=== PATIENT | female | born 1960 | race Hispanic/Latino ===

== ENCOUNTER 2017-11-12 23:37 | Observation (INO) | payer BC, OTHER ==
[2017-11-13] MEDS ORDERED: Sodium Chloride 0.9% 1,000 ML IV STA (00:42)
[2017-11-13 01:53] LABS: BASO # 0.1 K/uL (0.0-0.2); BASO % 0.4 % (0.0-2.0); EOS # 0.4 K/uL (0.0-0.7); EOS % 2.8 % (0.0-4.0); HEMOGLOBIN 12.1 g/dL (12.0-16.0); LYMPH # 2.9 K/uL (1.0-4.3); LYMPH % 20.4 % (20.0-40.0); MEAN CELL VOLUME 85.6 fl (81.0-99.0); MEAN CORPUSCULAR HEMOGLOBIN 27.8 pg (27.0-31.0); MEAN CORPUSCULAR HGB CONC 32.4 g/dL (33.0-37.0); MEAN PLATELET VOLUME 7.7 fl (7.2-11.7); MONO # 1.1 K/uL (0.0-0.8); MONO % 7.4 % (0.0-10.0); NEUT # 9.9 K/uL (1.8-7.0); NRBC % 0.1 % (0.0-0.0); RBC 4.35 Mil/uL (3.80-5.20); WHITE BLOOD COUNT 14.3 K/uL (4.8-10.8)
[2017-11-13 02:11] LABS: CALCIUM 9.7 mg/dL (8.4-10.2); GFR AFRICAN-AMERICAN > 60; GFR NON-AFRICAN AMERICAN > 60; LIPASE 46 U/L (23-300)
[2017-11-13] MEDS ORDERED: Iohexol 300 100 ML IJ ONE (02:16)
[2017-11-13] MEDS ORDERED: Sodium Chloride 0.9% 100 ML ONE (02:17)
--- NOTE | 2017-11-13 02:18 | ED PDOC ---
HPI: Abdomen Time Seen by Provider: 11/13/17 00:21 Chief Complaint (Nursing): Abdominal Pain Chief Complaint (Provider): Abdominal Pain History Per: Patient History/Exam Limitations: no limitations Onset/Duration Of Symptoms: Days (x4) Outside of [place] travel?: No Current Symptoms Are (Timing): Still Present Location Of Pain/Discomfort: RLQ, LLQ Associated Symptoms: Nausea, Diarrhea. denies: Vomiting Additional Complaint(s): 56 year old female presents to ED with complaints of abdominal pain and diarrhea x4 days and has a past medical history of diabetes mellitus (type II). Patient localizes pain to the lower abdomen and notes that diarrhea has improved over time but is still frequent. (+) decreased PO intake and nausea. (- ) vomiting. PCP: Kulwinder Sanford Past Medical History Reviewed: Historical Data, Nursing Documentation, Vital Signs Vital Signs: Last Vital Signs Temp 98.2 F 11/14/17 16:02 Pulse 94 H 11/14/17 16:02 Resp 18 11/14/17 16:02 BP 111/72 11/14/17 16:02 Pulse Ox 93 L 11/14/17 16:02 - Medical History PMH: COPD (chronic bronchitis), Diabetes Denies: No Chronic Diseases - Surgical History Surgical History: Appendectomy, Cholecystectomy, Tonsillectomy - Family History Family History: States: Unknown Family Hx - Living Arrangements Living Arrangements: With Family - Social History Current smoker - smoking cessation education provided: No Ex-Smoker (has not smoked in the last 12 months): No Alcohol: None Drugs: Denies - Home Medications Home Medications: Ambulatory Orders Medication Instructions Recorded Alprazolam [Xanax] 0.5 mg PO BID PRN 11/13/17 Enalapril Maleate [Vasotec] 10 mg PO HS 11/13/17 Folic Acid [FA-8] 800 mcg PO HS 11/13/17 Insulin Aspart, Recombinant 14 unit SQ DAILY 11/13/17 [Novolog] Insulin Aspart, Recombinant 18 unit SQ DIN 11/13/17 [Novolog] Magnesium Oxide [Magnesium] 250 mg PO HS 11/13/17 Metoprolol Tartrate [Lopressor] 50 mg PO BID 11/13/17 Simvastatin [Zocor] 20 mg PO HS 11/13/17 Acetaminophen [Tylenol 325mg tab] 650 mg PO Q6 PRN tab 11/14/17 Ciprofloxacin HCl [Cipro] 500 mg PO BID #20 tablet 11/14/17 Metronidazole [Flagyl] 500 mg PO TID #30 tablet 11/14/17 Tramadol HCl [Ultram] 50 mg PO Q6 PRN #20 tablet 11/14/17 - Allergies Allergies/Adverse Reactions: Allergies Allergy/AdvReac Type Severity Reaction Status Date / Time Penicillins AdvReac HEADACHE Verified 11/13/17 00:15 Review of Systems ROS Statement: Except As Marked, All Systems Reviewed And Found Negative Gastrointestinal: Positive for: Nausea, Abdominal Pain, Diarrhea, Other ((+) decreased PO intake). Negative for: Vomiting Physical Exam - Reviewed Nursing Documentation Reviewed: Yes Vital Signs Reviewed: Yes - Physical Exam Appears: Positive for: Non-toxic, Uncomfortable Skin: Positive for: Normal Color, Warm, Dry Cardiovascular/Chest: Positive for: Regular Rate, Rhythm. Negative for: Murmur Respiratory: Positive for: Normal Breath Sounds. Negative for: Respiratory Distress Gastrointestinal/Abdominal: Positive for: Soft, Tenderness (tenderness to the lower abdomen) Extremity: Positive for: Normal ROM. Negative for: Deformity Neurologic/Psych: Positive for: Alert, Oriented. Negative for: Motor/Sensory Deficits - Laboratory Results Result Diagrams: 11/14/17 05:30 11/14/17 05:30 - ECG O2 Sat by Pulse Oximetry: 96 (RA) Pulse Ox Interpretation: Normal Medical Decision Making Medical Decision Makin Initial impression: diarrheal illness and abdominal pain Initial plan: * CTA A/P * EKG * Labs * Lipase * Bentyl 20mg PO * NS IV * Toradol 15mg IVP * Zofran Inj4mg IV * Accucheck * UA * Re-eval 0329 CT FINDINGS: LOWER THORAX: Small hiatal hernia. ABDOMEN: LIVER: Fatty infiltration of the liver. The liver is enlarged. GALLBLADDER AND BILE DUCTS: Cholecystectomy clips. PANCREAS: No CT evidence of acute pancreatitis. SPLEEN: No acute abnormality of the spleen identified. ADRENALS: No acute abnormality of the adrenal glands identified. KIDNEYS AND URETERS: 11 mm low density lesion in the left kidney, most likely a cyst. No acute abnormality of the kidneys identified. STOMACH AND BOWEL: Moderate fat stranding and infiltration, consistent with inflammatory change, seen in the fat adjacent to the proximal sigmoid colon. Segmental wall thickening of the colon also noted in this same area. There is a small amount of nearby fluid in the left retroperitoneal space. The inflammatory changes surround a colonic diverticulum. Findings are most compatible with moderate to severe acute diverticulitis. No evidence of significant focal fluid collection or abscess. No definite nearby extraluminal air seen to suggest perforation. Moderate diverticulosis of the left colon. Focally dilated small bowel loop is seen in the right abdomen. No evidence of diffuse small bowel dilatation, small bowel decompression of colonic decompression. This finding is most likely secondary to a mild focal ileus. APPENDIX: Normal appendix is not seen, and there is a reported history of previous appendectomy. PELVIS: BLADDER: No acute abnormality of the bladder identified. REPRODUCTIVE: Bulge in the contour of the uterus posteriorly, most likely secondary to a fibroid. No evidence of large adnexal masses. ABDOMEN and PELVIS: INTRAPERITONEAL SPACE: No evidence of free air. BONES/JOINTS: No acute fractures or other acute bony abnormality noted. SOFT TISSUES: Small ventral hernia, in the anterior abdominal wall just to the right of midline, containing fat and vessels. No evidence of bowel herniation. VASCULATURE: No evidence of abdominal aortic aneurysm or dissection. LYMPH NODES: No evidence of diffuse lymphadenopathy. IMPRESSION: - FINDINGS COMPATIBLE WITH MODERATE TO SEVERE ACUTE DIVERTICULITIS OF THE PROXIMAL SIGMOID COLON. NO ABSCESS FORMATION OR PERFORATION. - Small bowel findings most likely secondary to mild focal ileus. No evidence of a significant small bowel obstruction. - Otherwise, no evidence of significant acute process. - See above for remaining findings. [address] Alberts, who agrees with plan to admit. Patient will be admitted to INPATIENT MED/SURG under Dr. Alberts who covers Dr. Sanford. * Lact acid * Ciprofloxacin IV * Flagyl IVPB * BCx Scribe Attestation: Documented by Sweetie Marte acting as a scribe Murtaza Gage MD. Scribdary Attestation: All medical record entries made by the Scribe were at my direction and personally dictated by me. I have reviewed the chart and agree that the record accurately reflects my personal performance of the history, physical exam, medical decision making, and the department course for this patient. I have also personally directed, reviewed, and agree with the discharge instructions and disposition. Disposition - Clinical Impression Clinical Impression: Diverticulitis - Patient ED Disposition Is Patient to be Admitted: Yes - Disposition Disposition Time: 03:44 Condition: GOOD - Pt Status Changed To: Hospital Disposition Of: Inpatient (INPATIENT MED/SURG) - Admit Certification Admit to Inpatient:: After my assessment, the patient will require hospitalization for at least two midnights. This is because of the severity of symptoms shown, intensity of services needed, and/or the medical risk in this patient being treated as an outpatient.
[2017-11-13 02:23] LABS: ALBUMIN 4.1 g/dL (3.5-5.0); ALT/SGPT 25 U/L (9-52); AST/SGOT 37 U/L (14-36); BLOOD UREA NITROGEN 16 mg/dl (7-17)
--- NOTE | 2017-11-13 03:29 | CT ---
EXAM: CT Abdomen and Pelvis With Intravenous Contrast EXAM DATE/TIME: 11/13/2017 1:07 AM CLINICAL HISTORY: 56 years old, female; Pain; Abdominal pain; Localized; Upper; Prior surgery; Surgery date: 6+ months; Surgery type: Appendectomy; Additional info: Pancreatitis TECHNIQUE: Axial computed tomography images of the abdomen and pelvis with intravenous contrast. All CT scans at this facility use one or more dose reduction techniques, viz.: automated exposure control; ma/kV adjustment per patient size (including targeted exams where dose is matched to indication; i.e. head); or iterative reconstruction technique. Coronal and sagittal reformatted images were created and reviewed. CONTRAST: 95 mL of [id number] administered intravenously. COMPARISON: Prior CT abdomen and pelvis of 2014-03-18 FINDINGS: LOWER THORAX: Small hiatal hernia. ABDOMEN: LIVER: Fatty infiltration of the liver. The liver is enlarged. GALLBLADDER AND BILE DUCTS: Cholecystectomy clips. PANCREAS: No CT evidence of acute pancreatitis. SPLEEN: No acute abnormality of the spleen identified. ADRENALS: No acute abnormality of the adrenal glands identified. KIDNEYS AND URETERS: 11 mm low density lesion in the left kidney, most likely a cyst. No acute abnormality of the kidneys identified. STOMACH AND BOWEL: Moderate fat stranding and infiltration, consistent with inflammatory change, seen in the fat adjacent to the proximal sigmoid colon. Segmental wall thickening of the colon also noted in this same area. There is a small amount of nearby fluid in the left retroperitoneal space. The inflammatory changes surround a colonic diverticulum. Findings are most compatible with moderate to severe acute diverticulitis. No evidence of significant focal fluid collection or abscess. No definite nearby extraluminal air seen to suggest perforation. Moderate diverticulosis of the left colon. Focally dilated small bowel loop is seen in the right abdomen. No evidence of diffuse small bowel dilatation, small bowel decompression of colonic decompression. This finding is most likely secondary to a mild focal ileus. APPENDIX: Normal appendix is not seen, and there is a reported history of previous appendectomy. PELVIS: BLADDER: No acute abnormality of the bladder identified. REPRODUCTIVE: Bulge in the contour of the uterus posteriorly, most likely secondary to a fibroid. No evidence of large adnexal masses. ABDOMEN and PELVIS: INTRAPERITONEAL SPACE: No evidence of free air. BONES/JOINTS: No acute fractures or other acute bony abnormality noted. SOFT TISSUES: Small ventral hernia, in the anterior abdominal wall just to the right of midline, containing fat and vessels. No evidence of bowel herniation. VASCULATURE: No evidence of abdominal aortic aneurysm or dissection. LYMPH NODES: No evidence of diffuse lymphadenopathy. IMPRESSION: - FINDINGS COMPATIBLE WITH MODERATE TO SEVERE ACUTE DIVERTICULITIS OF THE PROXIMAL SIGMOID COLON. NO ABSCESS FORMATION OR PERFORATION. - Small bowel findings most likely secondary to mild focal ileus. No evidence of a significant small bowel obstruction. - Otherwise, no evidence of significant acute process. - See above for remaining findings.
[2017-11-13] MEDS ORDERED: metroNIDAZOLE 500mg/100ml NS 100 ML IVPB STA (03:43)
[2017-11-13] MEDS ORDERED: Ciprofloxacin 400mg/200ml D5W 400 MG/200 ML BAG IV STA (03:43)
[2017-11-13] MEDS ORDERED: Sodium Chloride 0.9% 1,000 ML IV SCH (04:00)
--- NOTE | 2017-11-13 04:11 | CP.PCM.HP ---
History of Present Illness - History of Present Illness History of Present Illness: CC: Abd pain HPI: This is a 56 y/o female with MHx significant for DM2 and ?COPD presenting with abd pain and nb diarrhea for 3-4 days. Patient denies f/c/v, but does have some nausea. Pain is localized to mostly lower left abd. there is no dysuria. No other complaints. patient has never had any similar issues before. PCP: Juvenal ROS: 14 systems reviewed, negative other than HPI MHx: DM2, COPD SHx: Appx, cholecystectomy, tonsillectomy Allergies: PCN Medications: as per med rec Family Hx: No relevant history Social Hx: Lives at home, prior hx of tobacco, no significant EtOH Surrogate: Present on Admission - Present on Admission Any Indicators Present on Admission: No Past Patient History - Past Social History Alcohol: None Drugs: Denies - PULMONARY Hx Chronic Obstructive Pulmonary Disease (COPD): Yes (chronic bronchitis) - ENDOCRINE/METABOLIC Hx Diabetes Mellitus Type 2: Yes - PSYCHIATRIC Hx Substance Use: No - SURGICAL HISTORY Hx Appendectomy: Yes Hx Cholecystectomy: Yes Hx Tonsillectomy: Yes - ANESTHESIA Hx Anesthesia: Yes Meds Allergies/Adverse Reactions: Allergies Allergy/AdvReac Type Severity Reaction Status Date / Time Penicillins AdvReac HEADACHE Verified 11/13/17 00:15 Physical Exam - Constitutional Appears: No Acute Distress - Head Exam Head Exam: ATRAUMATIC, NORMOCEPHALIC - Eye Exam Eye Exam: EOMI, PERRL - ENT Exam ENT Exam: Mucous Membranes Dry - Neck Exam Neck exam: Positive for: Full Rom - Respiratory Exam Respiratory Exam: Clear to Auscultation Bilateral, NORMAL BREATHING PATTERN - Cardiovascular Exam Cardiovascular Exam: REGULAR RHYTHM, +S1, +S2 - GI/Abdominal Exam GI & Abdominal Exam: Normal Bowel Sounds, Soft, Tenderness Additional comments: LLQ tenderness - Extremities Exam Extremities exam: Positive for: full ROM, normal inspection - Neurological Exam Neurological exam: Alert, CN II-XII Intact, Oriented x3 - Psychiatric Exam Psychiatric exam: Normal Affect, Normal Mood - Skin Skin Exam: Dry, Warm Results - Vital Signs Recent Vital Signs: Last Vital Signs Temp 98.2 F 11/13/17 00:15 Pulse 91 H 11/13/17 00:15 Resp 18 11/13/17 00:15 BP 131/83 03/21/18 00:15 Pulse Ox 96 11/13/17 03:48 - Labs Result Diagrams: 11/13/17 01:48 11/13/17 01:48 Labs: Laboratory Results - last 24 hr 11/13/17 11/13/17 01:48 01:48 WBC 14.3 H RBC 4.35 Hgb 12.1 Hct 37.2 MCV 85.6 MCH 27.8 MCHC 32.4 L RDW 15.0 H Plt Count 280 MPV 7.7 Neut % (Auto) 69.0 Lymph % (Auto) 20.4 [place] % (Auto) 7.4 Eos % (Auto) 2.8 Baso % (Auto) 0.4 Neut # (Auto) 9.9 H Lymph # (Auto) 2.9 [place] # (Auto) 1.1 H Eos # (Auto) 0.4 Baso # (Auto) 0.1 Sodium 137 Potassium 5.8 H Chloride 100 Carbon Dioxide 24 Anion Gap 19 BUN 16 Creatinine 0.6 L Est GFR ( Amer) > 60 Est GFR (Non-Af Amer) > 60 Random Glucose 256 H Calcium 9.7 Total Bilirubin 1.0 AST 37 H ALT 25 Alkaline Phosphatase 85 Total Protein 8.1 Albumin 4.1 Globulin 4.0 H Albumin/Globulin Ratio 1.0 Lipase 46 - Imaging and Cardiology CT scan - abdomen Status: Image reviewed by me, Report reviewed by me (moderate to severe acute diverticulitis) Assessment & Plan (1) Diverticulitis Assessment and Plan: 56 y/o female with DM2 presenting with acute diverticulitis. 1) Diverticulitis -Cont cipro/flagyl IV -Cont hydration -clear liqs, advance diet as tolerated -Pain control per scale -Zofran for nausea IV 2) Elevated K -- wnl renal function -Aggressive hydration -repeat BMP at 8 AM 3) DM2 -- accucheck, SSI for now 4) DVT PPx -- SCDs only for now Status: Acute (2) Serum potassium elevated Status: Acute (3) DM2 (diabetes mellitus, type 2) Status: Acute
[2017-11-13] MEDS ORDERED: Ciprofloxacin 400mg/200ml D5W 400 MG/200 ML BAG IVPB ONE (04:23)
[2017-11-13] MEDS ORDERED: metroNIDAZOLE 500mg/100ml NS 100 ML IVPB ONE (05:11)
[2017-11-13] MEDS: Insulin Lispro (humaLOG) 100 Units/ml Inj SC SCH ×4 (08:00→21:40)
[2017-11-13 08:36] LABS: BLOOD UREA NITROGEN 15 mg/dl (7-17); CALCIUM 9.2 mg/dL (8.4-10.2); GFR AFRICAN-AMERICAN > 60; GFR NON-AFRICAN AMERICAN > 60
[2017-11-13] MEDS ORDERED: Ciprofloxacin 400mg/200ml D5W 400 MG/200 ML BAG IVPB SCH (09:00)
--- NOTE | 2017-11-13 09:12 | RAD ---
HISTORY: admit COMPARISON: 03/18/2014 FINDINGS: LUNGS: No active pulmonary disease. PLEURA: No significant pleural effusion identified, no pneumothorax apparent. CARDIOVASCULAR: Normal. OSSEOUS STRUCTURES: No significant abnormalities. VISUALIZED UPPER ABDOMEN: Normal. OTHER FINDINGS: None. IMPRESSION: No active disease. No interval pathology noted
[2017-11-13] MEDS: Oxycodone/Acetaminophen 5/325 mg Tab PO PRN ×2 (09:30→19:25)
[2017-11-13] MEDS ORDERED: Influenza Vaccine 18yr & older 0.5 ML/45 MCG SYR IM ONE (10:00)
[2017-11-13] MEDS ORDERED: Pneumococcal 23-Valent Vaccine IM ONE (10:00)
[2017-11-13] MEDS: metroNIDAZOLE 500mg/100ml NS 100 ML IVPB SCH (10:12)
--- NOTE | 2017-11-13 10:55 | CARD ---
APPROVED REPORT EKG Measurement Heart [id number] <Conclusion> Normal sinus rhythm Low voltage QRS Cannot rule out Anteroseptal infarct, age undetermined Abnormal ECG
[2017-11-13] MEDS: Ciprofloxacin 400mg/200ml D5W 400 MG/200 ML BAG IVPB SCH (16:11)
[2017-11-14] MEDS: metroNIDAZOLE 500mg/100ml NS 100 ML IVPB SCH ×4 (00:50→17:33)
[2017-11-14] MEDS: Ciprofloxacin 400mg/200ml D5W 400 MG/200 ML BAG IVPB SCH ×2 (03:31→17:31)
[2017-11-14 07:04] LABS: HEMOGLOBIN 11.2 g/dL (12.0-16.0); MEAN CELL VOLUME 86.1 fl (81.0-99.0); MEAN CORPUSCULAR HEMOGLOBIN 28.1 pg (27.0-31.0); MEAN CORPUSCULAR HGB CONC 32.7 g/dL (33.0-37.0); RBC 3.99 Mil/uL (3.80-5.20); RED CELL DISTRIBUTION WIDTH 15.4 % (11.5-14.5); WHITE BLOOD COUNT 7.2 K/uL (4.8-10.8)
[2017-11-14 07:21] LABS: BLOOD UREA NITROGEN 7 mg/dl (7-17); CALCIUM 8.8 mg/dL (8.4-10.2); GFR AFRICAN-AMERICAN > 60; GFR NON-AFRICAN AMERICAN > 60
[2017-11-14 08:09] VITALS: TEMP 98.2
[2017-11-14] MEDS ORDERED: Insulin Detemir 100 Units/ml Inj SC STA (08:56)
[2017-11-14] MEDS: Insulin Lispro (humaLOG) 100 Units/ml Inj SC SCH ×3 (09:22→17:33)
[2017-11-14] MEDS: Oxycodone/Acetaminophen 5/325 mg Tab PO PRN (09:35)
--- NOTE | 2017-11-14 12:04 | CP.PCM.DIS ---
Provider - Provider Date of Admission: 11/13/17 03:44 Attending physician: Penelope Alberts MD Primary care physician: Kulwinder Sanford MD Consults: GI : DR Reynoso Time Spent in preparation of Discharge (in minutes): 30 Diagnosis - Discharge Diagnosis (1) Diverticulitis Status: Acute (2) DM2 (diabetes mellitus, type 2) Status: Chronic Hospital Course - Lab Results Lab Results: Micro Results 11/13/17 04:21 Blood Blood Culture - Preliminary NO GROWTH AFTER 24 HOURS 11/13/17 04:06 Blood Blood Culture - Preliminary NO GROWTH AFTER 24 HOURS Most Recent Lab Values WBC 7.2 K/uL (4.8-10.8) 11/14/17 05:30 RBC 3.99 Mil/uL (3.80-5.20) 11/14/17 05:30 Hgb 11.2 g/dL (12.0-16.0) L 11/14/17 05:30 Hct 34.3 % (34.0-47.0) 11/14/17 05:30 MCV 86.1 fl (81.0-99.0) 11/14/17 05:30 MCH 28.1 pg (27.0-31.0) 11/14/17 05:30 MCHC 32.7 g/dL (33.0-37.0) L 11/14/17 05:30 RDW 15.4 % (11.5-14.5) H 11/14/17 05:30 Plt Count 232 K/uL (130-400) 11/14/17 05:30 MPV 7.7 fl (7.2-11.7) 11/13/17 01:48 Neut % (Auto) 69.0 % (50.0-75.0) 11/13/17 01:48 Lymph % (Auto) 20.4 % (20.0-40.0) 11/13/17 01:48 [place] % (Auto) 7.4 % (0.0-10.0) 11/13/17 01:48 Eos % (Auto) 2.8 % (0.0-4.0) 11/13/17 01:48 Baso % (Auto) 0.4 % (0.0-2.0) 11/13/17 01:48 Neut # (Auto) 9.9 K/uL (1.8-7.0) H 11/13/17 01:48 Lymph # (Auto) 2.9 K/uL (1.0-4.3) 11/13/17 01:48 [place] # (Auto) 1.1 K/uL (0.0-0.8) H 11/13/17 01:48 Eos # (Auto) 0.4 K/uL (0.0-0.7) 11/13/17 01:48 Baso # (Auto) 0.1 K/uL (0.0-0.2) 11/13/17 01:48 Sodium 143 mmol/l (132-148) 11/14/17 05:30 Potassium 4.5 MMOL/L (3.6-5.0) 11/14/17 05:30 Chloride 106 mmol/L (98-107) 11/14/17 05:30 Carbon Dioxide 25 mmol/L (22-30) 11/14/17 05:30 Anion Gap 17 (10-20) 11/14/17 05:30 BUN 7 mg/dl (7-17) 11/14/17 05:30 Creatinine 0.6 mg/dl (0.7-1.2) L 11/14/17 05:30 Est GFR ( Amer) > 60 11/14/17 05:30 Est GFR (Non-Af Amer) > 60 11/14/17 05:30 POC Glucose (mg/dL) 221 mg/dL (65-110) H 11/14/17 05:51 Random Glucose 222 mg/dL (65-105) H 11/14/17 05:30 Lactic Acid 1.2 MMOL/L (0.7-2.1) 11/13/17 04:06 Calcium 8.8 mg/dL (8.4-10.2) 11/14/17 05:30 Total Bilirubin 1.0 mg/dl (0.2-1.3) 11/13/17 01:48 AST 37 U/L (14-36) H 11/13/17 01:48 ALT 25 U/L (9-52) 11/13/17 01:48 Alkaline Phosphatase 85 U/L (38-126) 11/13/17 01:48 Total Protein 8.1 G/DL (6.3-8.2) 11/13/17 01:48 Albumin 4.1 g/dL (3.5-5.0) 11/13/17 01:48 Globulin 4.0 gm/dL (2.2-3.9) H 11/13/17 01:48 Albumin/Globulin Ratio 1.0 (1.0-2.1) 11/13/17 01:48 Lipase 46 U/L (23-300) 11/13/17 01:48 - Hospital Course Hospital Course: 56 y/o lady with hx of DM type II, came in because of lower abdominal pain, low grade fever, diarrhea. In the ED : CBC showed leukocytosis of 14k CT of the abdomen showed severe Diverticulitis. Pt was admitted and started on IVF hydration, kept NPO. IV Cipro and Flagyl started . GI consulted - plan for outpatient Colonoscopy in 4-6 wks. Ex Assistant/Program Director consulted for patient dietary education. Patient's abdominal pain resolved. Leukocytosis resolved and pt remained afebrile while in the hospital. Diet upgraded, she tolerated Po dit. Pt refuses to stay for further IV abx , she was discharged home on PO Cipro and Flagyl. Discharge Exam - Head Exam Head Exam: ATRAUMATIC, NORMAL INSPECTION, NORMOCEPHALIC - Eye Exam Eye Exam: EOMI, Normal appearance Pupil Exam: NORMAL ACCOMODATION - ENT Exam ENT Exam: Mucous Membranes Moist, Normal External Ear Exam - Neck Exam Neck exam: Full Rom - Respiratory Exam Respiratory Exam: Respiratory Distress, NORMAL BREATHING PATTERN - Cardiovascular Exam Cardiovascular Exam: REGULAR RHYTHM, +S1, +S2 - GI/Abdominal Exam GI & Abdominal Exam: Normal Bowel Sounds, Soft. absent: Tenderness - Extremities Exam Extremities exam: full ROM, normal capillary refill, pedal pulses present - Back Exam Back exam: FULL ROM. absent: CVA tenderness (L), CVA tenderness (R) - Neurological Exam Neurological exam: Alert, CN II-XII Intact, Normal Gait, Oriented x3, Reflexes Normal - Psychiatric Exam Psychiatric exam: Normal Affect, Normal Mood - Skin Skin Exam: Dry, Normal Color, Warm Discharge Plan - Discharge Medications Prescriptions: Ciprofloxacin HCl [Cipro] 500 mg PO BID #20 tablet Metronidazole [Flagyl] 500 mg PO TID #30 tablet Tramadol HCl [Ultram] 50 mg PO Q6 PRN #20 tablet PRN Reason: Pain, Moderate (4-7) - Follow Up Plan Condition: GOOD Disposition: HOME/ ROUTINE Instructions: Low Fiber Diet, Diverticulitis (DC) Additional Instructions: ff up with Dr Reynoso in 1 -[address] Sanford [facility] Referrals: Aly Reynoso MD, PhD [Staff Provider] - Kulwinder Sanford MD [Primary Care Provider] -
[2017-11-14 16:02] VITALS: BP 111/72; PULSE 94; RESP 18
[2017-11-14] MEDS ORDERED: Ciprofloxacin 400mg/200ml D5W 400 MG/200 ML BAG IVPB STA (17:01)
[2017-11-14 20:29] VITALS: O2SAT 96
--- NOTE | 2017-11-15 12:57 | CON ---
DATE: 11/14/2017 REASON FOR CONSULTATION: Diverticulitis. HISTORY OF PRESENT ILLNESS: This is a joan 56-year-old female with a history of diabetes, COPD,who is brought in for left lower quadrant pain, diarrhea, and abdominal pain. The pain is improving. Diarrhea is improving. The patient has diverticulitis .No previous colostomy. Currently lying in bed comfortably, in no apparent distress.. PAST MEDICAL HISTORY: As above. PAST SURGICAL HISTORY: As above. MEDICATIONS: Reviewed. REVIEW OF SYSTEMS: All other systems have been reviewed and negative apart from the HPI. PHYSICAL EXAMINATION: VITAL SIGNS: In the hospital is grossly remarkable. GENERAL: This is a pleasant middle age female, lying in bed comfortable, in no apparent distress. HEENT: Head is normocephalic atraumatic. Eyes, pupils are equal, round and reactive to light bilaterally. No conjunctival pallor or icterus. NECK: Supple. Normal range of motion. No lymphadenopathy appreciated. LUNGS: Coarse breath sounds bilaterally. HEART: S1 and S2. Regular rate and rhythm. No murmurs appreciated. ABDOMEN: Soft and nontender. Bowel sounds present. No rebound. No guarding. RECTAL: Deferred. EXTREMITIES: Pulses are present bilaterally. SKIN: Warm, dry and intact. NEUROLOGIC: A & O x3. LABORATORY DATA: Radiology reviewed. CAT scan shows [id number] acute diverticulitis with sigmoid. Labs include WBC of 14.3, now 17.3, hemoglobin is stable at 11.2. Sugars are 187. ALT is normal. ASSESSMENT AND PLAN: This is a 56-year-old female with diverticulitis. Antibiotics for 10 to 14 days , office visit with me in 2 -3 weeks, colonoscopy in 6 to 8 weeks. Aly Reynoso MD/ PhD
== END 2017-11-14 20:00 | disposition home or self-care (01) ==
LOC: H.ER 23:37 → H.ERHOLD 11-13 03:44 → INTOOBSV 11-13 03:44 → H.MEDSURG1 11-13 05:30
PROVIDERS: ADMIT Internal Medicine; ATTEND Internal Medicine
DX: K57.32 Diverticulitis of large intestine without perforation or abscess without bleeding (principal); E87.5 Hyperkalemia; D72.828 Other elevated white blood cell count; E11.9 Type 2 diabetes mellitus without complications; J44.9 Chronic obstructive pulmonary disease, unspecified; Z23 Encounter for immunization; Z87.891 Personal history of nicotine dependence; Z79.4 Long term (current) use of insulin; Z88.0 Allergy status to penicillin; Z90.49 Acquired absence of other specified parts of digestive tract
CPT/HCPCS: 36415; 71045; 74177; 80053; 82948; 83605; 83690; 85025; 85027; 87040; 93005; 96361; 96365; 96366; 96367; 96375; 96376; 99282; G0008; G0378; J0744; J1885; J2405; J7040; Q2035; Q9967